=== PATIENT | male | born 1960 | race Caucasian/White ===

== ENCOUNTER 2019-08-20 22:36 | Emergency (ER) | payer MEDICAID ==
[~2019-08-20] VITALS: Ht 190.5 cm; Wt 123.8 kg
[2019-08-20 22:42] VITALS: Ht 190.5 cm; Wt 123.8 kg
[2019-08-21 03:10] VITALS: BP 121/61
== END 2019-08-21 03:10 | disposition home or self-care (01) ==
LOC: ED 22:36
DX: S60.222A Contusion of left hand, initial encounter (principal); S40.012A Contusion of left shoulder, initial encounter; Z90.89 Acquired absence of other organs; X58.XXXA Exposure to other specified factors, initial encounter; Y93.89 Activity, other specified; Y92.89 Other specified places as the place of occurrence of the external cause; Y99.8 Other external cause status